=== PATIENT | male | born 1960 | race Caucasian/White ===

== ENCOUNTER 2022-10-10 22:53 | Emergency (ER) | payer BC, SELFPAY ==
[2022-10-10 22:58] VITALS: BP 154/74; PULSE 64; RESP 18; TEMP 36.8; O2SAT 99; BMI 36.6
[2022-10-10 23:00] VITALS: O2SAT 98
[2022-10-10 23:02] VITALS: O2SAT 97
--- NOTE | 2022-10-10 23:02 | CRLHL7_ITS ---
For Patients: As a result of the Century Cures Act, medical imaging exams and procedure reports are released immediately into your electronic medical record. You may view this report before your referring provider. If you have questions, please contact your health care provider. INDICATION: Right upper quadrant abdominal pain. TECHNIQUE: Ultrasound abdomen limited. Sonographic images of the right upper quadrant were obtained using dallas-scale and color Doppler images. COMPARISON: None. FINDINGS: Liver: Evaluation is limited by poor acoustic windows. Questionable increased liver echogenicity, which may reflect fatty infiltration. Gallbladder: Large impacted stone at the gallbladder neck. Normal wall thickness. No pericholecystic fluid. Negative sonographic Walters`s sign. Common bile duct: Obscured by bowel gas. Pancreas: Obscured by bowel gas. Right kidney: Normal in size. Normal echotexture and cortex. No suspicious masses, stones, or hydronephrosis. Vasculature: Proximal abdominal aorta and IVC are unremarkable. IMPRESSION: Cholelithiasis with large impacted stone at the gallbladder neck. No evidence of cholecystitis. Dictated by Chema Ho MD @ 10/11/2022 12:58:04 AM (Electronically Signed)
--- NOTE | 2022-10-10 23:04 | ED_ITS ---
HPI - Abdominal Pain General Chief Complaint: Abdominal Pain Stated Complaint: abdominal pain Time Seen by Provider: 10/10/22 22:57 History of Present Illness HPI narrative: Right Side Abdominal Pain , Nausea pt. with pain that started at 1700 after eating burgers with onions. had similar eipisode last week that lasted for 24 hours. pain is worse this time. denies fevers, urinary symptoms, vomiting. 62-year-old man presenting to the emergency department with complaint of right upper/mid abdominal pain. Rather sharp. This occurred this last week as well about 4 days ago. Does not note any particular food intolerances saying ?me and food get along quite well? though tonight developed after eating burgers with onions. Has not had any fever. Is nauseated has not been vomiting. Pain radiates generally through the mid abdomen. Does get heartburn for which he takes Tums. Otherwise diclofenac apparently for arthritic pains and discontinued that last week after this 1st event reading that can cause stomach problems. Denies constipation. Related Data Previous Rx's Medication Instructions Recorded diclofenac sodium 75 mg 75 mg PO BID #60 tabs 08/15/22 tablet,delayed release Allergies Allergy/AdvReac Type Severity Reaction Status Date / Time bupropion Allergy Intermediate Hives Verified 10/11/22 11:30 Review of Systems Status of ROS Reports: 6 or more systems reviewed and unremarkable except as noted in History and below [facility] Medical History Right rotator cuff tendinitis ?M75.81 - Other shoulder lesions, right shoulder (ICD-10) BPH (benign prostatic hyperplasia) ?N40.0 - Benign prostatic hyperplasia without lower urinary tract symptoms (ICD-10) 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 ?R43.8 - Other disturbances of smell and taste (ICD-10) ?U09.9 - Post covid-19 condition, unspecified (ICD-10) History of vitamin D deficiency (2009) ?Z86.39 - Personal history of other endocrine, nutritional and metabolic dis ease (ICD-10) History of malignant melanoma (2005) ?Z85.820 - Personal history of malignant melanoma of skin (ICD-10) History of adenomatous polyp of colon (02/13/21) ?Z86.010 - Personal history of colonic polyps (ICD-10) Surgical History History of open reduction and internal fixation (ORIF) procedure (2008) ?Z98.890 - Other specified postprocedural states (ICD-10) History of knee replacement (2010) ?Z96.659 - Presence of unspecified artificial knee joint (ICD-10) History of bilateral inguinal hernia repair (1995) ?Z98.890 - Other specified postprocedural states (ICD-10) ?Z87.19 - Personal history of other diseases of the digestive system (ICD-10) Family History Father Colon cancer Coronary artery disease Prostate cancer Brother Coronary artery disease Social History Narrative: , 4 kids, retired, 1 ppd smoker, social ETOH Smoking Status: Former smoker Exam Narrative: Exam Narrative: Pleasant. Breathing easily. Heavily bearded. Skin is warm and dry. There are subcutaneous lipomas type nodules in the upper abdomen. Abdomen is overweight soft and moderately tender in the right upper quadrant. Guards a little bit but otherwise no peritoneal signs. Normoactive bowel sounds. Extremities are well perfused without edema. Moving all extremities without difficulty. Heart with regular rate and rhythm. Lungs appear to be clear. Cranial nerves 2-12 intact. Const: Vital Signs, click to edit/add: Vital Signs - 24 hr 10/10/22 22:58 10/10/22 23:02 Temperature 98.3 F Pulse Rate [Right Pulse Oximeter] 64 Respiratory Rate 18 Blood Pressure [Ri ght Upper Arm] 154/74 H Pulse Oximetry 99 97 Oxygen Delivery Me thod Room Air Documenting provider has reviewed patient's vital signs: yes Course Vital Signs Vital signs: Initial Vital Signs Temperature 98.3 F 10/10/22 22:58 Temperature Source Temporal Artery Scan 10/10/22 22:58 Pulse Rate 64 10/10/22 22:58 Respiratory Rate 18 10/10/22 22:58 Blood Pressure 154/74 H 10/10/22 22:58 Blood Pressure Mean 100 10/10/22 22:58 Blood Pressure Position Sitting 10/10/22 22:58 Pulse Oximetry 99 10/10/22 22:58 Oxygen Delivery Method Room Air 10/10/22 22:58 Vital Signs Temperature 98.3 F 10/10/22 22:58 Pulse Rate 64 10/10/22 22:58 Respiratory Rate 18 10/10/22 22:58 Blood Pressure 154/74 H 10/10/22 22:58 Pulse Oximetry 99 10/10/22 22:58 Oxygen Delivery Method Room Air 10/10/22 22:58 Temperature 98.0 F 10/11/22 01:45 Pulse Rate 70 10/11/22 01:45 Respiratory Rate 18 10/11/22 01:45 Blood Pressure 132/74 10/11/22 01:45 Pulse Oximetry 97 10/11/22 01:44 Oxygen Delivery Method Room Air 10/11/22 01:44 MDM - Abdominal Pain MDM Narrative Medical decision making narrative: Location is consistent with gallbladder disease as is on off symptoms. Newly seems best explanation. I suppose could be some GERD related symptoms. Did hurt with the epigastric. Pancreatitis as well though does not seem to have that degree of pain and recurrent vomiting. IV fluids pain meds antiemetics. Labs are pending. I think reasonable to request ultrasound already. Reviewing labs does show mildly elevated transaminases though not inconsistent with fatty liver. CRP a little bit elevated at 1.1. White count is normal Discussed with technical operator the results. Noting a 3 mm gallbladder wall and stone in the neck of the gallbladder. I think there was a misunderstanding as to size in my conversation. The size of common bile duct is difficult to interpret as partially obscured by bowel/gas. Confirmed with radiology over-read this is 2.4 cm stone. I did review these ultrasound images myself as well. Relatively stoic. Reviewing symptoms, presented with 9/10 pain now 5 or 6/10 he says. Does feel though that might be able to manage at home if necessary. This is not in significant pain however and I would like to discuss with our surgeon. He is amenable to surgical intervention as well. Does not appear to have cholecystitis but more of a biliary colic with cholelithiasis Surgery recommendations are for admission and mid day perhaps surgery. Discussing again with Mr. Luke, and he expresses skepticism of urgency of intervention challenging need for admission. Has things to do; a planned on cutting wood. Rating pain rather high but appears to be tolerable. I discussed again with our surgeon. Will arrange for outpatient follow-up See patient discharge plan Lab Data Attestation: I reviewed the patient's lab results. Labs: Lab Results 10/10/22 Range/Units 23:02 WBC 10.55 (4.50-11.00) K/uL RBC 4.78 (4.30-5.90) m/uL Hgb 15.0 (13.5-17.5) gm/dL Hct 45.2 (37.0-53.0) % MCV 95 (80-100) fL MCH 31 (26-34) pg MCHC 33 (32-36) gm/dL RDW Coeff of Roxanne 12.6 (11.5-15.5) % Plt Count 169 (140-440) K/uL Neut % (Auto) 48.9 (42.0-72.0) % Lymph % (Auto) 35.2 (20-44) % [place] % (Auto) 12.3 H (0.0-11.0) % Eos % (Auto) 2.4 (0.0-7.0) % Baso % (Auto) 0.4 (0.0-3.0) % Neut # (Auto) 5.17 (1.7-7.0) K/uL Lymph # (Auto) 3.71 H (0.90-2.90) K/uL [place] # (Auto) 1.30 H (0.00-0.90) K/UL Eos # (Auto) 0.25 (0.00-0.50) K/uL Baso # (Auto) 0.04 (0.00-0.30) K/uL Sodium 141 (135-149) mmol/L Potassium 4.0 (3.6-5.1) mmol/L Chloride 107 (96-114) mmol/L Carbon Dioxide 27 (20-32) mmol/L BUN 20 (7-30) mg/dL Creatinine 1.0 (0.5-1.5) mg/dL Estimated Creat Clear 81.91 Estimated GFR 84 ml/min Glucose 114 (60-115) mg/dL Calcium 9.3 (8.4-10.6) mg/dL Total Bilirubin 0.4 (0.1-1.5) mg/dL Direct Bilirubin 0.2 (0.0-0.5) mg/dL AST 42 H (12-35) U/L ALT 72 H (4-50) U/L Alkaline Phosphatase 79 (40-150) U/L C-Reactive Protein 1.1 H (0.5-1.0) mg/dL Total Protein 7.6 (6.0-8.3) g/dL Albumin 4.6 (3.3-5.0) g/dL Lipase 96 (23-300) U/L Discharge Plan Discharge Clinical Impression: Cholelithiasis, Biliary colic Patient Disposition: Home, Self-Care Condition: Stable Additional Instructions: Hydrate. Eat magneto repairer foods avoiding greasy foods in particular. I spoke with Dr. Gigi cope. Since your preference is to go home tonight as opposed to admission, she would like to see you in her clinic tomorrow with probable surgery on Saturday. Otherwise I would return sooner for uncontrolled pain, repeated vomiting, fever. Percocet and Zofran from [facility]. Prescriptions: No Action diclofenac sodium 75 mg tablet,delayed release (DR/EC) 75 mg PO BID Qty: 60 1RF Follow Up/Referrals: Bobby Wray MD [Primary Care Provider] - Stand Alone Forms: [employer] Info Instructions
[2022-10-10 23:10] LABS: Basophils Absolute Auto 0.04 K/uL (0.00-0.30); Basophils Percent Auto 0.4 % (0.0-3.0); Eosinophils Absolute Auto 0.25 K/uL (0.00-0.50); Eosinophils Percent Auto 2.4 % (0.0-7.0); Hematocrit 45.2 % (37.0-53.0); Immature Granulocytes Abs Auto 0.08 K/uL (0.00-0.30); Immature Granulocytes Pct Auto 0.8 %; Lymphocytes Absolute Auto 3.71 K/uL (0.90-2.90); Lymphocytes Percent Auto 35.2 % (20-44); Mean Corpuscular HGB Conc 33 gm/dL (32-36); Mean Corpuscular Hemoglobin 31 pg (26-34); Mean Corpuscular Volume 95 fL (80-100); Monocytes Percent Auto 12.3 % (0.0-11.0); Neutrophils Absolute Auto 5.17 K/uL (1.7-7.0); Neutrophils Percent Auto 48.9 % (42.0-72.0); Platelet Count* 169 K/uL (140-440); RDW Coefficient of Variation % 12.6 % (11.5-15.5); Red Blood Count 4.78 m/uL (4.30-5.90); White Blood Count* 10.55 K/uL (4.50-11.00)
[2022-10-10 23:12] LABS: Slide Review Reflex No
[2022-10-10] MEDS: 0.9 % SODIUM CHLORIDE 1000 ml 1,000 ML IV (23:13)
[2022-10-10] MEDS: KETOROLAC 30 MG/ML inj IVP (23:14)
[2022-10-10] MEDS: MORPHINE 4 MG/ML INJ IVP (23:15)
[2022-10-10] MEDS: ONDANSETRON 2 MG/ML inj 4 MG IVP (23:15)
[2022-10-10 23:30] LABS: Albumin* 4.6 g/dL (3.3-5.0)
[2022-10-10 23:31] LABS: Chloride* 107 mmol/L (96-114); Sodium* 141 mmol/L (135-149)
[2022-10-10 23:32] LABS: Bilirubin Direct* 0.2 mg/dL (0.0-0.5); Bilirubin Total* 0.4 mg/dL (0.1-1.5); Total Protein* 7.6 g/dL (6.0-8.3)
[2022-10-10 23:33] LABS: Alanine Aminotransferase* 72 U/L (4-50); Alkaline Phosphatase* 79 U/L (40-150); Aspartate Amino Transferase* 42 U/L (12-35); Lipase* 96 U/L (23-300)
[2022-10-10 23:34] LABS: Blood Urea Nitrogen* 20 mg/dL (7-30); Carbon Dioxide* 27 mmol/L (20-32); Est. Creatinine Clearance* 81.91; Estimated Glomerular Filt Rate 84 ml/min
[2022-10-10 23:35] LABS: Calcium* 9.3 mg/dL (8.4-10.6); Glucose* 114 mg/dL (60-115)
[2022-10-10 23:37] LABS: C Reactive Protein* 1.1 mg/dL (0.5-1.0)
[2022-10-11 01:44] VITALS: BP 132/74; PULSE 70; RESP 18; TEMP 36.7; O2SAT 97
[2022-10-11 01:45] VITALS: BP 132/74; PULSE 70; RESP 18; TEMP 36.7
== END 2022-10-11 01:46 | disposition home or self-care (01) ==
PROVIDERS: Emergency Provider Family Medicine; PCP Family Medicine
DX: K80.51 Calculus of bile duct without cholangitis or cholecystitis with obstruction (principal)
CPT/HCPCS: 36415; 76705; 80048; 80076; 83690; 85025; 86140; 94761; 96374; 96375; 99284; J1885; J2270; J2405; J7030

== ENCOUNTER 2023-01-31 07:41 | Outpatient (CLI) | payer BC, SELFPAY ==
--- NOTE | 2023-01-31 08:00 | CRLHL7_ITS ---
For Patients: As a result of the Century Cures Act, medical imaging exams and procedure reports are released immediately into your electronic medical record. You may view this report before your referring provider. If you have questions, please contact your health care provider. INDICATION: Left knee replacement 2010. Pain and swelling since replacement. Evaluate for loosening. TECHNIQUE: 26.3 mCi Tc-99m labeled MDP administered. A three-phase bone scan of the knees was performed. COMPARISON: None. No correlative studies either. FINDINGS: Flow phase: Normal. Blood pool: Mild asymmetry of activity about the femoral component of the left knee arthroplasty, nonspecific. Delayed images photopenic defect from a left knee arthroplasty. Minor activity along the femoral and tibial component. Minor degenerative-type activity right knee. IMPRESSION: No scintigraphic evidence for loosening or infection of the left knee arthroplasty. Dictated by Brooks Olivarez MD @ 02/01/2023 8:50:28 AM (Electronically Signed)
== END 2023-01-31 07:42 | disposition home or self-care (01) ==
LOC: NM 07:42
PROVIDERS: PCP Family Medicine; Visit Provider Orthopaedic Surgery
DX: M25.562 Pain in left knee (principal)
CPT/HCPCS: 78315; A9503

== ENCOUNTER 2023-07-22 07:47 | Outpatient (CLI) | payer BC, SELFPAY ==
--- NOTE | 2023-07-22 09:18 | W.ANESCHARGE ---
Anesthesia Charges Start Date/Time Anesthesia Start Date: 07/22/23 Anesthesia Start Time: 09:13 Stop Date/Time Anesthesia Stop Date: 07/22/23 Anesthesia Stop Time: 09:39
--- NOTE | 2023-07-22 09:43 | W.ANESCHARGE ---
Anesthesia Charges Start Date/Time Anesthesia Start Date: 07/22/23 Anesthesia Start Time: 09:13 Stop Date/Time Anesthesia Stop Date: 07/22/23 Anesthesia Stop Time: 09:39
== END 2023-07-22 07:48 | disposition home or self-care (01) ==
PROVIDERS: PCP Internal Medicine; Visit Provider Internal Medicine
DX: K63.5 Polyp of colon (principal); K62.1 Rectal polyp; K57.30 Diverticulosis of large intestine without perforation or abscess without bleeding; Z86.010 Personal history of colon polyps
CPT/HCPCS: 00811; 45380; 45385; 73600; 88305; J2704; J3010; J7030

== ENCOUNTER 2023-07-22 16:08 | Emergency (ER) | payer BC, SELFPAY ==
[2023-07-22] VITALS (37 sets, daily range): BP systolic 121–165; BP diastolic 64–90; PULSE 51–75; RESP 9–24; TEMP 36.7; O2SAT 93–100; BMI 38.0
--- NOTE | 2023-07-22 16:52 | XR_ITS ---
Patient: SUSY LAW Facility:?[facility] Patient ID:?[id number] Site Patient ID:?[id number]. Site :?[id number] Study:?XRay-Extremity Left ANKLE 2V-07/22/2023 5:22:12 PM Ordering Physician:KATHRINE Final Report: Indication: Fall, deformity. Technique: Left ankle 2 views. Comparison: None. Findings: Fracture dislocation involving the ankle mortise joint. Moderately displaced distal fibular fracture at the level of the ankle mortise joint. Moderately displaced comminuted medial malleolar fracture. Likely mildly displaced posterior malleolar fracture. Partial lateral subluxation of the talus relative to the tibial plafond. No aggressive osseous lesion. Mild soft tissue swelling about the ankle. Tiny posterior and plantar calcaneal enthesophytes. Impression: Moderately displaced trimalleolar fracture, as described above, with partial lateral subluxation of the talus relative to the tibial plafond. Recommend CT for further evaluation. Dictated by Hayden Myers MD @ 07/22/2023 6:40:27 PM Signed by:?Hayden Myers MD @07/22/2023 6:40:27 PM (Electronic Signature)
--- NOTE | 2023-07-22 17:06 | ED.GENADULT ---
HPI - General Adult General Chief complaint: Extremity Pain/Injury, Lower <Bobby Swenson MD - Last Filed: 07/24/23 10:50> Stated complaint: Ankle injury <Bobby Swenson MD - Last Filed: 07/24/23 10:50> Time Seen by Provider: 07/22/23 16:38 <Bobby Swenson MD - Last Filed: 07/24/23 10:50> History of Present Illness HPI narrative: EMS reports pt was walking to get mail when he slipped on ice and fell on left ankle. Left ankle visibly deformed. Pt had colonoscopy at [facility] earlier today and given Fentanyl. 20 g IV placed in right forearm by EMS and 2 mg Dilaudid given en route. Hx left knee replacement by MD Ochoa. 62-year-old man presenting to the emergency department via EMS following a slip and fall event, unsure if it was ice or Saturday, injuring his left ankle. Is noted to be deformed. Has received Dilaudid via EMS. Does have a prior injury to this leg evolving fracture of the leg and left knee replacement. Denies any other injuries. There was no loss of consciousness. No complaint of new neck or back pain. No shortness of breath. <Bobby Swenson MD - Last Filed: 07/24/23 10:50> Related Data Home medications: Home Medications Medication Instructions Recorded Confirmed oxycodone 5 mg tablet 5 mg PO Q6H PRN pain 07/24/23 07/24/23 <Bobby Swenson MD - Last Filed: 07/24/23 10:50> Allergies/adverse reactions: Allergies Allergy/AdvReac Type Severity Reaction Status Date / Time bupropion Allergy Intermediate Hives Verified 07/24/23 09:08 <Bobby Swenson MD - Last Filed: 07/24/23 10:50> Review of Systems Status of ROS: Reports: 6 or more systems reviewed and unremarkable except as noted in History and below <Bobby Swenson MD - Last Filed: 07/24/23 10:50> [facility] Medical History: Medical History History of malignant melanoma (2006) ?Z85.820 - Personal history of malignant melanoma of skin (ICD-10) <Bobby Swenson MD - Last Filed: 07/24/23 10:50> Surgical History: Surgical History History of laparoscopic cholecystectomy ?Z90.49 - Acquired absence of other specified parts of digestive tract (ICD-10) History of open reduction and internal fixation (ORIF) procedure (2008) ?Z98.890 - Other specified postprocedural states (ICD-10) History of knee replacement (2010) ?Z96.659 - Presence of unspecified artificial knee joint (ICD-10) History of bilateral inguinal hernia repair (1995) ?Z98.890 - Other specified postprocedural states (ICD-10) ?Z87.19 - Personal history of other diseases of the digestive system (ICD-10) <Bobby Swenson MD - Last Filed: 07/24/23 10:50> Family History: Family History Father Colon cancer Coronary artery disease Prostate cancer Brother Coronary artery disease <Bobby Swenson MD - Last Filed: 07/24/23 10:50> Social History: Social History Narrative: , 4 kids, retired, 1 ppd smoker, social ETOH Smoking Status: Former smoker What tobacco products do you use: cigarettes Smoking packs per day: 2 Smoking cigarettes per day: 40.0 Years smoked: 35 Smoking pack-years: 70.00 Smoking quit date/years: >15 years ago Do you use any of these nicotine containing products: None How often do you have a drink containing alcohol: 2-4 times a month Alcohol type: beer, wine and hard liquor How many standard drinks containing alcohol do you have on a typical day: 3 or 4 How often do you have six or more drinks on one occasion: Never AUDIT-C Alcohol total score: 3 Non-prescribed substance use: marijuana (any form) Non-prescribed substance use details: CBD GUMMIES Caffeine: Yes Little interest or pleasure in doing things: several days Feeling down, depressed, or hopeless: not at all <Bobby Swenson MD - Last Filed: 07/24/23 10:50> Exam Narrative: Exam Narrative: Pleasant. Seems tired presumably from opiate affect. Still with decent pain he admits. Breathing easily. Lungs appear to be clear. Head looks to be atraumatic. I arrive to evaluate Mr. Luke is receiving imaging in the bed. Does have swelling to the left ankle. It does appear that the foot is little shifted and some tightness to the skin over the medial malleolus. Subtle blanching of the skin posterior to this. Well-perfused into the toes. Midline surgical scar on the left knee. Heart in is slower but regular rate and rhythm. <Bobby Swenson MD - Last Filed: 07/24/23 10:50> Const: Vital Signs, click to edit/add: Vital Signs - 24 hr 07/22/23 16:16 07/22/23 16:51 07/22/23 17:00 Temperature 98.0 F Pulse Rate 62 58 L Pulse Rate [Pulse Oximeter] 75 Respiratory Rate 18 Blood Pressure Blood Pressure [Ri ght Upper Arm] 157/90 H Pulse Oximetry 97 97 [facility] 07/22/23 17:05 07/22/23 17:15 07/22/23 17:30 Temperature Pulse Rate 63 60 56 L Pulse Rate [Pulse Oximeter] Respiratory Rate Blood Pressure Blood Pressure [Ri ght Upper Arm] Pulse Oximetry 93 96 96 Oxygen Delivery Nm thod 07/22/23 17:35 07/22/23 17:45 07/22/23 18:00 Temperature Pulse Rate 53 L 51 L 53 L Pulse Rate [Pulse Oximeter] Respiratory Rate Blood Pressure Blood Pressure [Ri ght Upper Arm] Pulse Oximetry 95 96 94 Oxygen Delivery Nm thod 07/22/23 18:02 07/22/23 18:15 07/22/23 18:30 Temperature Pulse Rate 54 L 51 L 60 Pulse Rate [Pulse Oximeter] Respiratory Rate Blood Pressure 128/67 Blood Pressure [Ri ght Upper Arm] Pulse Oximetry 97 96 97 Oxygen Delivery Nm thod 07/22/23 18:34 07/22/23 18:49 07/22/23 18:54 Temperature Pulse Rate 58 L 61 63 Pulse Rate [Pulse Oximeter] Respiratory Rate Blood Pressure 155/85 H 165/81 H Blood Pressure [Ri ght Upper Arm] Pulse Oximetry 99 98 99 Oxygen Delivery Nm thod 07/22/23 18:57 07/22/23 19:00 07/22/23 19:02 Temperature Pulse Rate 65 63 63 Pulse Rate [Pulse Oximeter] Respiratory Rate 24 11 L Blood Pressure 162/88 H 121/81 Blood Pressure [Ri ght Upper Arm] Pulse Oximetry 99 95 98 Oxygen Delivery Me thod 07/22/23 19:02 07/22/23 19:02 07/22/23 19:02 Temperature Pulse Rate 63 63 63 Pulse Rate [Pulse Oximeter] Respiratory Rate 11 L 11 L 11 L Blood Pressure 121/81 121/81 121/81 Blood Pressure [Ri ght Upper Arm] Pulse Oximetry 98 98 98 Oxygen Delivery Me thod 07/22/23 19:06 07/22/23 19:12 07/22/23 19:15 Temperature Pulse Rate 61 59 L 64 Pulse Rate [Pulse Oximeter] Respiratory Rate 22 13 16 Blood Pressure 126/74 129/83 Blood Pressure [Ri ght Upper Arm] Pulse Oximetry 99 100 99 Oxygen Delivery Me thod 07/22/23 19:16 07/22/23 19:17 07/22/23 19:22 Temperature Pulse Rate 66 59 L 61 Pulse Rate [Pulse Oximeter] Respiratory Rate 16 9 L 18 Blood Pressure 140/80 H 142/64 H Blood Pressure [Ri ght Upper Arm] Pulse Oximetry 100 100 100 Oxygen Delivery Me thod 07/22/23 19:27 07/22/23 19:28 07/22/23 19:29 Temperature Pulse Rate 59 L 57 L Pulse Rate [Pulse Oximeter] Respiratory Rate 18 Blood Pressure 133/75 Blood Pressure [Ri ght Upper Arm] Pulse Oximetry 99 97 98 Oxygen Delivery Me thod Nasal Cannula 07/22/23 19:30 07/22/23 19:32 07/22/23 19:37 Temperature Pulse Rate 58 L 59 L 63 Pulse Rate [Pulse Oximeter] Respiratory Rate 12 12 22 Blood Pressure 133/69 127/82 Blood Pressure [Ri ght Upper Arm] Pulse Oximetry 96 97 97 Oxygen Delivery Me thod 07/22/23 19:42 07/22/23 19:45 07/22/23 19:47 Temperature Pulse Rate 61 60 62 Pulse Rate [Pulse Oximeter] Respiratory Rate 11 L 15 Blood Pressure 140/77 H 136/78 Blood Pressure [Ri ght Upper Arm] Pulse Oximetry 96 97 97 Oxygen Delivery Me thod 07/22/23 20:00 07/22/23 20:02 07/22/23 20:15 Temperature Pulse Rate 58 L 61 56 L Pulse Rate [Pulse Oximeter] Respiratory Rate 14 15 Blood Pressure 132/77 Blood Pressure [Ri ght Upper Arm] Pulse Oximetry 96 97 97 Oxygen Delivery Me thod 07/22/23 20:17 Temperature Pulse Rate 58 L Pulse Rate [Pulse Oximeter] Respiratory Rate 17 Blood Pressure 133/71 Blood Pressure [Ri ght Upper Arm] Pulse Oximetry 98 Oxygen Delivery Me thod <Bobby Swenson MD - Last Filed: 07/24/23 10:50> Vital Signs, click to edit/add: Vital Signs - 24 hr 07/22/23 16:16 07/22/23 16:51 07/22/23 17:00 Temperature 98.0 F Pulse Rate 62 58 L Pulse Rate [Pulse Oximeter] 75 Respiratory Rate 18 Blood Pressure Blood Pressure [Ri ght Upper Arm] 157/90 H Pulse Oximetry 97 97 93 Oxygen Delivery Me thod Room Air 07/22/23 17:05 07/22/23 17:15 07/22/23 17:30 Temperature Pulse Rate 63 60 56 L Pulse Rate [Pulse Oximeter] Respiratory Rate Blood Pressure Blood Pressure [Ri ght Upper Arm] Pulse Oximetry 93 96 96 Oxygen Delivery Me thod 07/22/23 17:35 07/22/23 17:45 07/22/23 18:00 Temperature Pulse Rate 53 L 51 L 53 L Pulse Rate [Pulse Oximeter] Respiratory Rate Blood Pressure Blood Pressure [Ri ght Upper Arm] Pulse Oximetry 95 96 94 Oxygen Delivery Me thod 07/22/23 18:02 07/22/23 18:15 07/22/23 18:30 Temperature Pulse Rate 54 L 51 L 60 Pulse Rate [Pulse Oximeter] Respiratory Rate Blood Pressure 128/67 Blood Pressure [Ri ght Upper Arm] Pulse Oximetry 97 96 97 Oxygen Delivery Me thod 07/22/23 18:34 07/22/23 18:49 07/22/23 18:54 Temperature Pulse Rate 58 L 61 63 Pulse Rate [Pulse Oximeter] Respiratory Rate Blood Pressure 155/85 H 165/81 H Blood Pressure [Ri ght Upper Arm] Pulse Oximetry 99 98 99 Oxygen Delivery Me thod 07/22/23 18:57 07/22/23 19:00 07/22/23 19:02 Temperature Pulse Rate 65 63 63 Pulse Rate [Pulse Oximeter] Respiratory Rate 24 11 L Blood Pressure 162/88 H 121/81 Blood Pressure [Ri ght Upper Arm] Pulse Oximetry 99 95 98 Oxygen Delivery Me thod 07/22/23 19:02 07/22/23 19:02 07/22/23 19:02 Temperature Pulse Rate 63 63 63 Pulse Rate [Pulse Oximeter] Respiratory Rate 11 L 11 L 11 L Blood Pressure 121/81 121/81 121/81 Blood Pressure [Ri ght Upper Arm] Pulse Oximetry 98 98 98 Oxygen Delivery Me thod 07/22/23 19:06 07/22/23 19:12 07/22/23 19:15 Temperature Pulse Rate 61 59 L 64 Pulse Rate [Pulse Oximeter] Respiratory Rate 22 13 16 Blood Pressure 126/74 129/83 Blood Pressure [Ri ght Upper Arm] Pulse Oximetry 99 100 99 Oxygen Delivery Me thod 07/22/23 19:16 07/22/23 19:17 07/22/23 19:22 Temperature Pulse Rate 66 59 L 61 Pulse Rate [Pulse Oximeter] Respiratory Rate 16 9 L 18 Blood Pressure 140/80 H 142/64 H Blood Pressure [Ri ght Upper Arm] Pulse Oximetry 100 100 100 Oxygen Delivery Me thod 07/22/23 19:27 07/22/23 19:28 07/22/23 19:29 Temperature Pulse Rate 59 L 57 L Pulse Rate [Pulse Oximeter] Respiratory Rate 18 Blood Pressure 133/75 Blood Pressure [Ri ght Upper Arm] Pulse Oximetry 99 97 98 Oxygen Delivery Me thod Nasal Cannula 07/22/23 19:30 07/22/23 19:32 07/22/23 19:37 Temperature Pulse Rate 58 L 59 L 63 Pulse Rate [Pulse Oximeter] Respiratory Rate 12 12 22 Blood Pressure 133/69 127/82 Blood Pressure [Ri ght Upper Arm] Pulse Oximetry 96 97 97 Oxygen Delivery Me thod 07/22/23 19:42 07/22/23 19:45 07/22/23 19:47 Temperature Pulse Rate 61 60 62 Pulse Rate [Pulse Oximeter] Respiratory Rate 11 L 15 Blood Pressure 140/77 H 136/78 Blood Pressure [Ri ght Upper Arm] Pulse Oximetry 96 97 97 Oxygen Delivery Me thod 07/22/23 20:00 07/22/23 20:02 07/22/23 20:15 Temperature Pulse Rate 58 L 61 56 L Pulse Rate [Pulse Oximeter] Respiratory Rate 14 15 Blood Pressure 132/77 Blood Pressure [Ri t Upper Arm] Pulse Oximetry 96 97 97 Oxygen Delivery Me thod 07/22/23 20:17 Temperature Pulse Rate 58 L Pulse Rate [Pulse Oximeter] Respiratory Rate 17 Blood Pressure 133/71 Blood Pressure [Ri ght Upper Arm] Pulse Oximetry 98 Oxygen Delivery Me thod <Gladis Sanchez MD - Last Filed: 07/22/23 20:50> Documenting provider has reviewed patient's vital signs: yes <Bobby Swenson MD - Last Filed: 07/24/23 10:50> Course Course ED Course: Procedure note: I provided sedation for reduction of fracture dislocation of the left ankle. Consent was obtained, risks and benefits of both sedation and and procedure were discussed, questions answered and patient signed consent. He was maintained on oximetry, end-tidal CO2, blood pressure monitoring. He was given initially 100 mg of propofol based on a reported weight of 280 lb. He had reasonably good sedation with that, but did have a little bit of discomfort with movement of the ankle and was given another 20 mg. With that, reduction and splinting were completed. He require jaw thrust for snoring respirations but had no hypoxia or hypercapnia. Tolerated sedation and procedure well, awakened without difficulty. <Gladis Sanchez MD - Last Filed: 07/22/23 20:50> Vital Signs Vital signs: Initial Vital Signs Temperature 98.0 F 07/22/23 16:16 Temperature Source Temporal Artery Scan 07/22/23 16:16 Pulse Rate 75 07/22/23 16:16 Respiratory Rate 18 07/22/23 16:16 Blood Pressure 157/90 H 07/22/23 16:16 Blood Pressure Mean 112 H 07/22/23 16:16 Blood Pressure Position Supine 07/22/23 16:16 Pulse Oximetry 97 07/22/23 16:16 Oxygen Delivery Method Room Air 07/22/23 16:16 Vital Signs Temperature 98.0 F 07/22/23 16:16 Pulse Rate 75 07/22/23 16:16 Respiratory Rate 18 07/22/23 16:16 Blood Pressure 157/90 H 07/22/23 16:16 Pulse Oximetry 97 07/22/23 16:16 Oxygen Delivery Method Room Air 07/22/23 16:16 Temperature 98.0 F 07/22/23 16:16 Pulse Rate 58 L 07/22/23 20:17 Respiratory Rate 17 07/22/23 20:17 Blood Pressure 133/71 07/22/23 20:17 Pulse Oximetry 98 07/22/23 20:17 Oxygen Delivery Method Nasal Cannula 07/22/23 19:29 <Bobby Swenson MD - Last Filed: 07/24/23 10:50> Initial Vital Signs Temperature 98.0 F 07/22/23 16:16 Temperature Source Temporal Artery Scan 07/22/23 16:16 Pulse Rate 75 07/22/23 16:16 Respiratory Rate 18 07/22/23 16:16 Blood Pressure 157/90 H 07/22/23 16:16 Blood Pressure Mean 112 H 07/22/23 16:16 Blood Pressure Position Supine 07/22/23 16:16 Pulse Oximetry 97 07/22/23 16:16 Oxygen Delivery Method Room Air 07/22/23 16:16 Vital Signs Temperature 98.0 F 07/22/23 16:16 Pulse Rate 75 07/22/23 16:16 Respiratory Rate 18 07/22/23 16:16 Blood Pressure 157/90 H 07/22/23 16:16 Pulse Oximetry 97 07/22/23 16:16 Oxygen Delivery Method Room Air 07/22/23 16:16 Temperature 98.0 F 07/22/23 16:16 Pulse Rate 58 L 07/22/23 20:17 Respiratory Rate 17 07/22/23 20:17 Blood Pressure 133/71 07/22/23 20:17 Pulse Oximetry 98 07/22/23 20:17 Oxygen Delivery Method Nasal Cannula 07/22/23 19:29 <Gladis Sanchez MD - Last Filed: 07/22/23 20:50> Medications Administered Medications: Discontinued Medications Generic Name Dose Route Start Last Admin Trade Name Freq PRN Reason Stop Dose Admin Fentanyl 50 mcg 07/22/23 17:42 07/22/23 17:50 Fentanyl 100 Mcg/2 Ml Inj IVP 07/22/23 17:43 50 mcg ONCE ONE Administration Sodium Chloride 1,000 mls @ 1,000 mls/hr 07/22/23 18:01 07/22/23 19:31 0.9 % Sodium Chloride 1000 Ml IV 07/22/23 19:00 Infused .Q1H ONE Infusion Propofol 200 mg 07/22/23 18:52 07/22/23 18:57 Propofol 10 Mg/Ml Inj IVP 07/22/23 18:53 200 mg ONCE ONE Administration <Bobby Swenson MD - Last Filed: 07/24/23 10:50> Discontinued Medications Generic Name Dose Route Start Last Admin Trade Name Radha PRN Reason Stop Dose Admin Fentanyl 50 mcg 07/22/23 17:42 07/22/23 17:50 Fentanyl 100 Mcg/2 Ml Inj IVP 07/22/23 17:43 50 mcg ONCE ONE Administration Sodium Chloride 1,000 mls @ 1,000 mls/hr 07/22/23 18:01 07/22/23 19:31 0.9 % Sodium Chloride 1000 Ml IV 07/22/23 19:00 Infused .Q1H ONE Infusion Propofol 200 mg 07/22/23 18:52 07/22/23 18:57 Propofol 10 Mg/Ml Inj IVP 07/22/23 18:53 200 mg ONCE ONE Administration <Gladis Sanchez MD - Last Filed: 07/22/23 20:50> Medical Decision Making MDM Narrative Medical decision making narrative: I would presume ankle fracture and this is confirmed as I review two view x-ray. He has a by malleolar fracture with marked displacement of the angulated fibular component. The medial malleolus is shifted medially or the tibia is shifted medially on the talus. Disrupted mortise. And concerned about traumatic pressure of residual medial malleolus on the skin Adding more IV fluids. Presumably a little dehydrated given colonoscopy prep. Ordered for fentanyl as well. Waiting to hear back from Orthopedics regarding reduction and splinting and follow-up. He will need surgery. Spoke with Ortho. Confirming reduction recommendations. And will follow-up. I have asked Dr. Sanchez to assist with providing anesthesia support. Propofol for anesthesia was given. Adequate sedation achieved. Ankle reduced and splinted without difficulty. Woke from anesthesia without complication. <Bobby Swenson MD - Last Filed: 07/24/23 10:50> Medical Records Medical records reviewed: Yes I reviewed the patient's medical records <Bobby Swenson MD - Last Filed: 07/24/23 10:50> Discharge Plan Discharge Clinical Impression: Closed fracture dislocation of ankle joint <Bobby Swenson MD - Last Filed: 07/24/23 10:50> Patient Disposition: Home w/ Parent or Adult <Bobby Swenson MD - Last Filed: 07/24/23 10:50> Condition: Improved <Bobby Swenson MD - Last Filed: 07/24/23 10:50> Additional Instructions: Elevate for comfort. Can toe-touch while crutching but I would not bear weight on this ankle of course Expect a call tomorrow from Orthopedics to schedule follow-up. Their phone [phone] if you have not heard from them by mid afternoon go ahead and give them a call. Can take naproxen as discussed or ibuprofen for pain. Either can be combined with up to 1000 mg of acetaminophen per dose. Given my that each tablet of [place] contains 325 mg of acetaminophen. N[place] from [facility]. <Bobby Swenson MD - Last Filed: 07/24/23 10:50> Prescriptions: No Action oxycodone 5 mg tablet 5 mg PO Q6H PRN (Reason: pain) <Bobby Swenson MD - Last Filed: 07/24/23 10:50> Follow Up/Referrals: Giovanny Sinha MD [Primary Care Provider] - <Bobby Swenson MD - Last Filed: 07/24/23 10:50> Stand Alone Forms: [facility] Info Instructions <Bobby Swenson MD - Last Filed: 07/24/23 10:50> Procedures Orthopedic Fracture Reduction Fracture #1: Written consent by: patient <Bobby Swenson MD - Last Filed: 07/24/23 10:50> Time Out Performed: No <Bobby Swenson MD - Last Filed: 07/24/23 10:50> Side: left <Bobby Swenson MD - Last Filed: 07/24/23 10:50> Fracture location: ankle <Bobby Swenson MD - Last Filed: 07/24/23 10:50> Analgesia: procedural sedation <Bobby Swenson MD - Last Filed: 07/24/23 10:50> Technique: traction/counter-traction <Bobby Swenson MD - Last Filed: 07/24/23 10:50> Post Reduction X-rays Demonstrate: anatomical reduction (Mild posterior displacement of the fibula still) <Bobby Swenson MD - Last Filed: 07/24/23 10:50> Post-reduction neuro exam: intact <Bobby Swenson MD - Last Filed: 07/24/23 10:50> Post-reduction vascular exam: intact <Bobby Swenson MD - Last Filed: 07/24/23 10:50> Splint Applied: Yes <Bobby Swenson MD - Last Filed: 07/24/23 10:50> Patient Tolerated Procedure: well <Bobby Swenson MD - Last Filed: 07/24/23 10:50>
[2023-07-22] MEDS: fentaNYL 100 MCG/2 ML inj 50 MCG IVP (17:50)
[2023-07-22] MEDS: 0.9 % SODIUM CHLORIDE 1000 ml 1,000 ML IV (18:13)
[2023-07-22] MEDS: PROPOFOL 10 MG/ML INJ 200 MG IVP (18:57)
--- NOTE | 2023-07-22 19:06 | XR_ITS ---
Patient: SUSY LAW Facility:?[facility] Patient ID:?[id number] Site Patient ID:?[id number]. Site :?1960 Study:?XRay-Extremity Left ANKLE-07/22/2023 7:18:28 PM Ordering Physician:SEPIDEH Final Report: Indication: Postreduction. Technique: Left ankle two views. Comparison: Left ankle 07/22/2023. Findings: Cast obscures bone detail. Trimalleolar left ankle fracture demonstrates improved alignment status post reduction. No new osseous abnormality evident. Soft tissue swelling. Impression: Trimalleolar left ankle fracture with improved alignment status post reduction. Dictated by Gildardo Arteaga MD @ 07/22/2023 7:37:13 PM Signed by:?Gildardo Arteaga MD @07/22/2023 7:37:13 PM (Electronic Signature)
== END 2023-07-22 20:33 | disposition home or self-care (01) ==
PROVIDERS: Emergency Provider Family Medicine; PCP Internal Medicine
DX: S82.61XA Displaced fracture of lateral malleolus of right fibula, initial encounter for closed fracture (principal); W00.9XXA Unspecified fall due to ice and snow, initial encounter
CPT/HCPCS: 27788; 73600; 99156; 99284; J2704; J3010; J7030

== ENCOUNTER 2023-07-25 11:18 | Day surgery (SDC) | payer BC, SELFPAY ==
[2023-07-25] VITALS (13 sets, daily range): BP systolic 143–183; BP diastolic 80–95; PULSE 51–63; RESP 14–18; TEMP 36.1–36.6; O2SAT 96–100; BMI 38.0
[2023-07-25] MEDS: SODIUM CHLORIDE 0.9 % (FLUSH) 10 ML SYRINGE IVF (12:23)
[2023-07-25] MEDS: LACTATED RINGERS 1000 ML 1,000 ML 100 ML IV (12:23)
--- NOTE | 2023-07-25 13:30 | XR_ITS ---
Patient: SUSY LAW Facility:?[facility] Patient ID:?[id number] Site Patient ID:?[id number]. Site :?1960 Study:?XRay-Extremity Left 3V ANKLE-07/25/2023 4:28:28 PM Ordering Physician:?DR. FULLER Final Report: Indication: LEFT ANKLE ORIF Technique: Three fluoroscopic images of the left ankle. Fluoroscopic time 1 minute 51.5 seconds. IMPRESSION: Fluoroscopic guidance for open reduction internal fixation of the distal tibia and fibula. Dictated by Bobby Pereira MD @ 07/26/2023 10:50:02 AM Signed by:?Bobby Pereira MD @07/26/2023 10:50:02 AM (Electronic Signature)
[2023-07-25] MEDS: MIDAZOLAM HCL 1 MG/ML inj IVP (14:13)
[2023-07-25] MEDS: fentaNYL 100 MCG/2 ML inj IVP (14:13)
--- NOTE | 2023-07-25 14:18 | W.PM.NB ---
Nerve Block Nerve Block Time Seen by Provider: 14:15 Date Seen: 07/25/23 Type of block requested by surgeon for post-operative analgesia: popliteal Side: left Time out performed: Yes Verification of patient name: Yes Verification of date of : Yes Site marking: site marked Name of person performing procedure: Cabrera Continuous monitoring Was continuous monitoring of O2 sat, B/P, telemetry monitor, recorded every 15 minutes?: Yes Procedure Checklist: sterile prep, needles and gloves Ultrasound guided. Images saved: Yes Medications given in 5ml increments after negative aspiration: Ropivicaine %: 0.5 mL: 20 Needle gauge: 22 Patient tolerated procedure well: Yes Additional comments: Needle noted adjacent to nerve Block Charges Block Charge (with Pro Fee): Sciatic Nerve Use of Ultrasound Machine for Block: Yes- US Guidance/pain block
--- NOTE | 2023-07-25 14:18 | W.PM.NB ---
Nerve Block Nerve Block Time Seen by Provider: 14:15 Date Seen: 07/25/23 Type of block requested by surgeon for post-operative analgesia: adductor canal Side: left Time out performed: Yes Verification of patient name: Yes Verification of date of : Yes Site marking: site marked Name of person performing procedure: Cabrera Continuous monitoring Was continuous monitoring of O2 sat, B/P, color television console monitor, recorded every 15 minutes?: Yes Procedure Checklist: sterile prep, needles and gloves Ultrasound guided. Images saved: Yes Medications given in 5ml increments after negative aspiration: Ropivicaine %: 0.5 mL: 20 Needle gauge: 20 Patient tolerated procedure well: Yes Additional comments: Needle noted adjacent to nerve Block Charges Block Charge (with Pro Fee): Femoral Nerve Use of Ultrasound Machine for Block: Yes- US Guidance/pain block
--- NOTE | 2023-07-25 14:21 | SUR.PREOP ---
TIME?OUT:?1413 PT/RN/MDA?VERIFICATION?OF?SURGICAL?SITE,?PROCEDURE,?AND?CONSENT OBTAINED?PRIOR?TO?INVASIVE?PROCEDURE.
[2023-07-25] MEDS: CEFAZOLIN 2 GM INJ IVP (14:35)
[2023-07-25] MEDS: CEFAZOLIN 1 GM inj IVP (14:54)
--- NOTE | 2023-07-25 15:00 | SUR.OPER ---
BUMP UNDER THE LEFT HIP AND POSITIONING BY P.M.
--- NOTE | 2023-07-25 15:01 | SUR.OPER ---
1 UNDER THE HEAD BY THE PIPER INSTALLER.?
--- NOTE | 2023-07-25 15:01 | SUR.OPER ---
PATIENT QUESTIONS ANSWERED SATISFACTORILY PREOPERATIVELY BY ARNAUD HO RN.? PATIENT BROUGHT TO OR #3 PER CART AFTER ADMINISTRATION OF A BLOCK.? Patient positioned supine on OR #3 bed.? The perioperative?team supported arms bilaterally on arm boards.? Final approval of positioning by surgeon.?
--- NOTE | 2023-07-25 15:07 | W.ANESCHARGE ---
Anesthesia Charges Start Date/Time Anesthesia Start Date: 07/25/23 Anesthesia Start Time: 14:22 Stop Date/Time Anesthesia Stop Date: 07/25/23 Anesthesia Stop Time: 16:21
--- NOTE | 2023-07-25 15:51 | P.ORPRC_ITS ---
Procedure Note Date of procedure: 07/25/23 Procedure: PREOPERATIVE DIAGNOSIS: Left ankle Farr B bimalleolar fracture POSTOPERATIVE DIAGNOSIS: Left ankle Farr B bimalleolar fracture NAME OF OPERATION: ORIF SURGEON: King Ochoa MD QUALITY SYSTEMS TECHNICIAN: ERENDIRA Domínguez Debbie Lang, PA-C ANESTHESIA: Spinal plus popliteal block ESTIMATED BLOOD LOSS: 25 mL COMPLICATIONS: None SPECIMENS: None DRAINS: None PREOPERATIVE ANTIBIOTICS: Ancef 3 g INDICATIONS: The patient is a 62-year-old who sustained a left ankle fracture. ORIF was recommended. The risks, benefits and expected outcomes were discussed in detail. These included but were not limited to: Infection, bleeding, injury to blood vessel or nerve, venous thromboembolism. All questions were answered to their satisfaction. Use of an assistant laboratory director was necessary throughout the case for patient positioning and safety, soft tissue retraction and closure. PROCEDURE: A popliteal block was placed by anesthesia. Spinal anesthesia was administered. The lower extremity was prepped and draped in the usual sterile fashion. A guide pin was placed in the center of the distal fragment of the fibula, percutaneously. Its placement was confirmed with the image intensifier in multiple views. A stab incision was made around the guide pin. The opening reamer was used. The guide pin was removed. The reduction finger was placed in the distal fragment. The distal fragment was held reduced. The reduction finger was taken across the fracture site. The longer, flexible guide pin was placed across the fracture, engaging the canal of the proximal fragment. The opening reamer was placed again, past the fracture site. The 3.2 mm and 4.0 mm reamer were used in the proximal fragment. We placed the Arthrex 3.8 mm x 130 mm intramedullary nail. The talons were deployed. We placed 2 screws in the distal fragment. We then placed 2 Quadra cortical 3.5 mm syndesmotic screws. The paper guillotine operator was removed, the end cap was placed. This provides an anatomic reduction of the fibula with excellent fixation. Attention then turned to the medial side. A guide pin was placed percutaneously in the anterior colliculus. It was driven across the fracture site into the proximal fragment. Its placement was confirmed with the image intensifier in both the AP and lateral views. The distal fragment was over drilled. We then placed a 4.0 mm x 46 mm cannulated screw. Since the medial malleolus fracture comprised only the anterior colliculus we elected not to place a 2nd screw. Implants were imaged in the AP, mortise and lateral views and were felt to be well placed with an excellent reduction. The talus is nicely reduced under the tibial plafond. The wounds were irrigated with normal saline. The assistant laboratory director closed the skin with a 3-0 nylon in a simple interrupted fashion. Glue was used to seal the skin. The assistant laboratory director placed a dry dressing and short leg Vik Khalil splint. Sponge and needle counts were correct x 2. The patient tolerated the procedure well. There were no apparent complications. They were carefully transferred to the hospital bed and taken to the postanesthesia care unit in satisfactory condition. PLAN: The patient will be discharged to home. They will remain strict nonwe ightbearing on the lower extremity. They will continue to work on ice and elevation. They will follow up in the office in 2 weeks for a wound check and three views of the ankle out of the splint, prior to being seen, in preparation for a CAM walker, early weight-bearing and physical therapy.
--- NOTE | 2023-07-25 16:14 | W.ANESCHARGE ---
Anesthesia Charges Start Date/Time Anesthesia Start Date: 07/25/23 Anesthesia Start Time: 14:22 Stop Date/Time Anesthesia Stop Date: 07/25/23 Anesthesia Stop Time: 16:21
== END 2023-07-25 17:30 | disposition home or self-care (01) ==
PROVIDERS: PCP Internal Medicine; Visit Provider Orthopaedic Surgery
PROC: (CPT 27814; principal; 2023-07-25 13:30)
DX: S82.842A Displaced bimalleolar fracture of left lower leg, initial encounter for closed fracture (principal); G89.18 Other acute postprocedural pain
CPT/HCPCS: 27814; 01470; 01480; 64445; 64447; 73600; 76000; 76942; A4580; C1713; C1776; J0690; J2250; J2371; J2405; J2704; J2795; J3010; J7120

== ENCOUNTER 2023-11-05 07:29 | Day surgery (SDC) | payer MEDICARE, BC, SELFPAY ==
--- OUTSIDE RECORDS SUMMARY | 2023-11-05 07:31 | XMS_ITS | Clinical Summary ---
Author Organization [facility] Address [place], [place] [address] Care Team Providers Care Bung Dropper Name Role Phone Christian Lozano MD Unavailable Bobby Wray MD Primary Care Provider + Allergies Active Allergy Reactions Criticality Noted Date Comments Bupropion Hives 01/17/2009 Medications Medication Sig Dispensed Refills Start Date End Date Status diclofenac (VOLTAREN) 75 mg delayed-release tablet Take 75 mg by mouth. 12/19/2022 Active ketoconazole 2% topical (NIZORAL) cream APPLY TOPICALLY TO THE AFFECTED AREA TWICE DAILY 07/10/2022 Active Active Problems Problem Noted Date Diagnosed Date Tear of right rotator cuff 11/22/2015 Polyp of colon 12/17/2010 Hx: Fx Tibia NOS-Open 12/17/2010 FH: heart attack 04/19/2010 Heartburn 06/08/2009 Obesity, unspecified 06/08/2009 Personal history of tobacco use, presenting hazards to health 01/17/2009 Hx: Melanoma 11/01/2005 Overview: Superficial spreading Resolved Problems Problem Noted Date Diagnosed Date Resolved Date Vitamin D deficiency 06/14/2009 011 Immunizations Name Administration Dates Next Due Pneumococcal Poly,23-Valent (Pneumovax) 01/09/20 09 Tdap 09/07/2009 Family History Medical History Relation Name Comments Cancer-colon Father Other Mother Relation Name Status Comments Father Mother Alive Social History Tobacco Use Types Packs/Day Years Used Date Smoking Tobacco: Former Cigarettes 0 10/22/2021 - 12/23/2008 Smokeless Tobacco: Never Tobacco Cessation:Counseling Given: Not Answered Comments:considering Quitting always-does not know how Alcohol Use Standard Drinks/Week Comments Yes 0 (1 standard drink = 0.6 oz pur e alcohol) PHQ-2 Answer Date Recorded PHQ-2 TOTAL SCORE 0 07/08/2020 Social Connections Answer Date Recorded Frequency of Communication with Friends and Fami ly Not on file 06/03/2021 Financial Resource Strain Answer Date R ecorded Difficulty of Paying Living Expenses Not on file 06/03/2021 Difficulty of Paying Living Expenses Not on file 06/03/2021 Sex and Gender Information Value Date Recorded Sex Assigned at Not on file Gender Identity Not on file Sexual Orientation Not on file Obstetrics History Last Filed Vital Signs Vital Sign Reading Time Taken Comments Blood Pressure 155/76 01/16/2023 3:21 PM CDT Pulse 61 01/16/2023 3:21 PM CDT Temperature 36.3 ??C (97.3 ??F) 01/16/2023 3:21 PM CD T Respiratory Rate 18 01/16/2023 3:21 PM CDT Oxygen Saturation 97% 01/16/2023 3:21 PM CDT Inhaled Oxygen Concentration - - Weight 125.6 kg (277 lb) 01/16/2023 3:21 PM CDT Height 181.6 cm (5' 11.5) 07/08/2020 1:43 PM CS T Body Mass Index 38.1 07/08/2020 1:43 PM PACKAGE PICK UP Plan of Treatment Health Maintenance Due Date Last Done Comments HIV for age 15-65 1973 Zoster (shingles) series for age 50+ (1 of 2) 2008 Colonoscopy through age 75 03/05/201803/05, 03/05/2013, 05/10/2010, Additional history exists Tetanus booster 09/08/2019 09/07/2009, 09/07/2009 BMI (ht and wt on same day) for age 18+ 07/08/2021 07/08/2020 Depression screening for age 12+ 07/11/2021 07/11/2020, 07/08/2020, 07/08/2020, Additional history exists COVID-19 vaccine series (2022-24 season) 2023 AAA screening age 65-74 09/18/2023 Pneumococcal series for age 65+ (2 of 2 - PCV) 09/18/2023 01/08/2009 Influenza for age 65+ 02/02/2024 Lipids for age 45-75 07/08/2025 07/08/2020, 06/22/2014, 10/21/2012, Additional history exists Tdap Completed 09/07/2009 Hepatitis C screening for ag e 18-79 Completed 10/21/2012 Procedures Procedure Name Priority Date/Time Associated Diagnosis Comments LIPID PANEL W REFLEX MEASURED LDL Routine 07/08/2020 2:41 PM PACKAGE PICK UP Well adult exam COLONOSCOPY SCREENING Routine 03/05/2013 Special screening for malignant neoplasms, colon ACUTE HEPATITIS PANEL Routine 10/21/2012 8:10 AM CDT Routine general medical examination at a health care facility from Last 3 Months or Most Recently Relevant to Health Maintenance Results * (ABNORMAL) LIPID PANEL W REFLEX MEASURED LDL (07/08/2020 2:41 PM PACKAGE PICK UP) CHOLESTEROL,TOTAL 225(H) 100 - 199 mg/dL 07/08/2020 3:16 PM PACKAGE PICK UP [facility] TRIGLYCERIDES 114 <150 mg/dL 07/08/2020 3:16 PM PACKAGE PICK UP [facility] HDL CHOLESTEROL 58 >40 mg/dL 3:16 PM PACKAGE PICK UP [facility] NON-HDL CHOLESTEROL 167(H) <145 mg/dl 07/08/2020 3:16 PM PACKAGE PICK UP [facility] CHOL/HDL RATIO 3.88 <4.50 07/08/2020 3:16 PM PACKAGE PICK UP [facility] LDL CHOLESTEROL 144(H) <=130 mg/dL 07/08/2020 3:16 PM PACKAGE PICK UP [facility] PROVIDER ORDERED STATUS RANDOM 07/08/2020 3:16 PM PACKAGE PICK UP [facility] Blood BLOOD SPECIMEN / Unknown Venipuncture / Unknown 07/08/2020 2:41 PM PACKAGE PICK UP 07/08/2020 2:42 PM PACKAGE PICK UP Hammad Braden MD CHEMISTRY [address] [address] * COLONOSCOPY SCREENING (03/05/2013) Hayden Mcclain MD GI PROCEDUR E ORD * ACUTE HEPATITIS PANEL (10/21/2012 8:10 AM CDT) HBSAG Non-reacti ve [facility] IGM ANTI HBC Non-reacti ve [facility] IGM ANTI HAV Non-reacti ve [facility] ANTI HCV Non-reacti ve [facility] Blood specimen (specimen) BLOOD SPECIMEN / Unknown 10/21/2012 8:10 AM CDT 10/21/2012 8:01 AM CDT Hayden Mcclain MD SEND OUTS [facility] INTERNAL ZIP [id number] [place] [id number] from Last 3 Months or Most Recently Relevant to Health Maintenance Care Teams Bung Dropper Relationship Specialty Start Date End Date Bobby Wray MD [address] [place] [address] PCP - General Family Practice 01/16/23 Christian Lozano MD Surgery - Orthopedics 02/14/11
[2023-11-05 07:40] VITALS: BMI 38.9
[2023-11-05] MEDS: LACTATED RINGERS 1000 ML 1,000 ML 100 ML IV ×2 (07:50→09:47)
[2023-11-05] MEDS: SODIUM CHLORIDE 0.9 % (FLUSH) 10 ML SYRINGE IVF (07:50)
[2023-11-05 07:57] VITALS: BP 142/95; PULSE 67; RESP 18; TEMP 36.5; O2SAT 96
--- NOTE | 2023-11-05 08:43 | CRLHL7_ITS ---
For Patients: As a result of the Cures Act, medical imaging exams and procedure reports are released immediately into your electronic medical record. You may view this report before your referring provider. If you have questions, please contact your health care provider. Indication: Screw removal Technique: Four fluoroscopic images of the left ankle. Fluoroscopic time 6.1 seconds. IMPRESSION: Fluoroscopic guidance for removal of syndesmotic screws. Dictated by Bobby Pereira MD @ 11/05/2023 12:20:59 PM (Electronically Signed)
[2023-11-05] MEDS: BUPIVACAINE 0.5 % 10 ML VIAL INJECTION (09:30)
[2023-11-05] MEDS: lidocaine HCL 2 % MULTIDOSE 20 ML VIAL 10 ML INJECTION (09:30)
[2023-11-05] MEDS: CEFAZOLIN 2 GM INJ IVP (09:36)
--- NOTE | 2023-11-05 10:09 | P.ORPRC_ITS ---
Procedure Note Date of procedure: 11/05/23 Procedure: PREOPERATIVE DIAGNOSIS: Left ankle fracture ORIF with retained hardware POSTOPERATIVE DIAGNOSIS: Left ankle fracture ORIF with retained hardware SURGEON: King Ochoa MD ELECTRIC TAPE SLITTER: Rodney Cordon PA-C NAME OF OPERATION: Hardware removal deep ANESTHESIA: Local ESTIMATED BLOOD LOSS: 0 mL COMPLICATIONS: None SPECIMENS: None DRAINS: None PREOPERATIVE ANTIBIOTICS: Ancef 2 gram INDICATIONS: The patient is a 63-year-old who sustained an ankle fracture. ORIF was completed previously. They present today for elective syndesmotic screw removal. The risks, benefits and expected outcomes were discussed in detail. These included but were not limited to: Infection, bleeding, injury to blood vessel or nerve, venous thromboembolism. All questions were answered to their satisfaction. Use of an assistant research scientist was necessary throughout the case for patient positioning and safety, soft tissue retraction and closure. PROCEDURE: The patient was placed supine on the operating room table. IV sedation was administered. Local anesthesia was administered. The lower extremity was prepped and draped in the usual sterile fashion. The image intensifier was used to confirm location of the syndesmotic screws. We utilized our previously placed incision and opened it longitudinally. Subcutaneous dissection was sharply taken to the screw heads which were fully exposed. Each screw was removed intact, without complication. The image intensifier was used to obtain an AP, mortise and lateral view of the ankle, showing the screws have been removed. The wound was irrigated with normal saline. The assistant research scientist closed soft tissue with a 3-0 Vicryl deep and a 3-0 Monocryl in the skin in a running subcuticular fashion. The assistant research scientist placed a soft dressing. Sponge and needle counts were correct x 2. The patient tolerated the procedure well. There were no apparent complications. They were carefully transferred to the hospital bed and taken to the postanesthesia care unit in satisfactory condition. PLAN: The patient will be discharged to home. They may weightbear as tolerates. Ice, elevation and Tylenol will be used as needed for pain. They will follow up in the office in 2 weeks for a wound check.
[2023-11-05 10:30] VITALS: BP 130/66; PULSE 65; RESP 16; TEMP 36.4; O2SAT 96
--- NOTE | 2023-11-05 10:40 | W.ANESCHARGE ---
Anesthesia Charges Start Date/Time Anesthesia Start Date: 11/05/23 Anesthesia Start Time: 09:24 Stop Date/Time Anesthesia Stop Date: 11/05/23 Anesthesia Stop Time: 10:23
[2023-11-05 10:45] VITALS: BP 136/81; PULSE 59; RESP 16; O2SAT 97
[2023-11-05 11:00] VITALS: BP 132/88; PULSE 55; RESP 16; O2SAT 98
--- NOTE | 2023-11-05 11:15 | W.ANESCHARGE ---
Anesthesia Charges Start Date/Time Anesthesia Start Date: 11/05/23 Anesthesia Start Time: 09:24 Stop Date/Time Anesthesia Stop Date: 11/05/23 Anesthesia Stop Time: 10:23
== END 2023-11-05 11:21 | disposition home or self-care (01) ==
LOC: OR 07:29
PROVIDERS: PCP Internal Medicine; Visit Provider Orthopaedic Surgery
PROC: (CPT 20680; principal; 2023-11-05 09:15)
DX: Z47.2 Encounter for removal of internal fixation device (principal)
CPT/HCPCS: 20680; 01480; 73600; 76000; J0665; J0690; J1100; J2250; J2405; J2704; J3010; J7120

== ENCOUNTER 2024-01-16 10:42 | Outpatient (CLI) | payer MEDICARE, BC, SELFPAY ==
--- OUTSIDE RECORDS SUMMARY | 2024-01-16 10:47 | XMS_ITS | Clinical Summary ---
Author Organization [email or web address] Address [place], [place] [address] Care Team Providers Care Coal Deliverer Name Role Phone Christian Lozano MD Unavailable [...] Body Mass Index 38.1 07/08/2020 1:43 PM [employer]ANK SHOP SUPERVISOR Plan of Treatment Health Maintenance Due Date [...] REFLEX MEASURED LDL Routine 07/08/2020 2:41 PM [employer] SUPERVISOR Well adult exam COLONOSCOPY SCREENING Routine 03/05/2013 Special screening for malignant neoplasms, colon ACUTE HEPATITIS PANEL Routine 10/21/2012 8:10 AM CDT Routine general medical examination at a health care facility from Last 3 Months or Most Recently Relevant to Health Maintenance Results * (ABNORMAL) LIPID PANEL W REFLEX MEASURED LDL (07/08/2020 2:41 PM T[employer] SHOP SUPERVISOR) CHOLESTEROL,TOTAL 225(H) 100 - 199 mg/dL 07/08/2020 3:16 PM TANK SHOP SUPERVISOR [facility] TRIGLYCERIDES 114 <150 mg/dL 07/08/2020 3:16 PM T[employer] SHOP SUPERVISOR [facility] HDL CHOLESTEROL 58 >40 mg/dL 3:16 PM [employer] SH[employer] SUPERVISOR [facility] NON-HDL CHOLESTEROL 167(H) <145 mg/dl 07/08/2020 3:16 PM T[employer] SHOP SUPERVISOR [facility] CHOL/HDL RATIO 3.88 <4.50 07/08/2020 3:16 PM T[employer] SH[employer] SUPERVISOR [facility] LDL CHOLESTEROL 144(H) <=130 mg/dL 07/08/2020 3:16 PM [employer] SH[employer] SUPERVISOR [facility] PROVIDER ORDERED STATUS RANDOM 07/08/2020 3:16 PM TANK SHOP SUPERVISOR [facility] Blood BLOOD SPECIMEN / Unknown Venipuncture / Unknown 07/08/2020 2:41 PM TANK SHOP SUPERVISOR 07/08/2020 2:42 PM TANK SHOP SUPERVISOR Hammad Braden MD CHEMISTRY [address] [address] * COLONOSCOPY SCREENING (03/05/2013) Hayden Mcclain MD GI PROCEDUR E ORD * ACUTE HEPATITIS PANEL (10/21/2012 8:10 AM CDT) HBSAG Non-reacti ve [facility] IGM ANTI HBC Non-reacti ve [facility] IGM ANTI HAV Non-reacti ve [facility] ANTI HCV Non-reacti ve [facility] Blood specimen (specimen) BLOOD SPECIMEN / Unknown 10/21/2012 8:10 AM CDT 10/21/2012 8:01 AM CDT Hayden Mcclain MD SEND OUTS [facility] INTERNAL ZIP [id number] [place] [id number] from Last 3 Months or Most Recently Relevant to Health Maintenance Care Teams Coal Deliverer Relationship Specialty Start Date End Date Bobby Wray MD [address] [place] [address] PCP - General Family Practice 01/16/23 Christian Lozano MD Surgery - Orthopedics 02/14/11
== END 2024-01-16 10:43 | disposition home or self-care (01) ==
PROVIDERS: PCP Internal Medicine; Visit Provider Internal Medicine
DX: Z00.00 Encounter for general adult medical examination without abnormal findings (principal); Z13.6 Encounter for screening for cardiovascular disorders; Z12.5 Encounter for screening for malignant neoplasm of prostate; Z13.9 Encounter for screening, unspecified
CPT/HCPCS: 80053; 80061; G0103

== ENCOUNTER 2024-10-08 10:20 | Outpatient (CLI) | payer MEDICARE, BC, SELFPAY | END 2024-10-08 10:21 | disposition home or self-care (01) | LOC: NFLDREF 10:21 | PROVIDERS: PCP Internal Medicine; Visit Provider Internal Medicine | DX: Z12.5 Encounter for screening for malignant neoplasm of prostate (principal) | CPT/HCPCS: G0103 ==

== ENCOUNTER 2024-10-19 10:32 | Outpatient (CLI) | payer MEDICARE, BC, SELFPAY ==
--- NOTE | 2024-10-19 11:00 | CRLHL7_ITS ---
For Patients: As a result of the 21st Century Cures Act, medical imaging exams and procedure reports are released immediately into your electronic medical record. You may view this report before your referring provider. If you have questions, please contact your health care provider. Indication: SACROCOCCYGEAL PAIN X 5 MONTHS. HX OF MELANOMA Technique: CT Abdomen/Pelvis 143CC ISOVUE 370 intravenous contrast Please note that all CT scans at this facility use dose modulation, iterative reconstruction, and/or weight-based dosing when appropriate to reduce radiation dose to as low as reasonably achievable. Comparison: None Findings: 4.7 millimeter nodule right lower lobe. No pleural effusion. Additional 4.7 millimeter nodule right lower lobe. Diffuse low-attenuation of the hepatic parenchyma. Low-density structure within the liver measures 5.2 millimeters, 2/41, too small to characterize. The gallbladder is absent. No intrahepatic biliary duct dilation. The spleen is normal. Normal pancreas. Adrenal glands are normal. Normal kidneys and ureters. Atherosclerotic changes. Prostate calcifications. Bladder is normal. No intra-abdominal or intrapelvic adenopathy. There is no soft tissue mass. No destructive osseous lesion or fracture. Degenerative disc disease and facet degeneration L4-5 and L5-S1. Incidental subcortical cyst in the right femoral head. Impression: No suspicious findings regarding the sacrum or coccyx. No fracture or intrinsic osseous lesion. No soft tissue mass. 4.7 millimeter nodules in the right lower lobe. 5.2 millimeter hypodensity in the liver. Attention to the above findings recommended on follow-up. Please note that all CT scans at this facility use dose modulation, iterative reconstruction, and/or weight-based dosing when appropriate to reduce radiation dose to as low as reasonably achievable. Dictated by Bobby Pereira MD @ 10/19/2024 12:27:24 PM (Electronically Signed)
[2024-10-19 11:06] LABS: Creatinine* 0.9 mg/dL (0.5-1.5); Estimated Glomerular Filt Rate 94 ml/min
== END 2024-10-19 10:33 | disposition home or self-care (01) ==
LOC: CT 10:35
PROVIDERS: PCP Internal Medicine; Visit Provider Internal Medicine
DX: M53.3 Sacrococcygeal disorders, not elsewhere classified (principal); R91.1 Solitary pulmonary nodule; K76.9 Liver disease, unspecified
CPT/HCPCS: 36415; 74177; 82565; Q9967